=== PATIENT | male | born 2000 | race American Indian/Alaskan Native ===

== ENCOUNTER 2021-03-15 21:56 | Emergency (ER) | payer SELFPAY ==
[2021-03-15 22:08] VITALS: BP 148/106
[2021-03-15] MEDS ORDERED: AZITHROMYCIN 250 MG TAB PO ONE (22:15)
[2021-03-15] MEDS ORDERED: TETANUS,DIPH,PERTUSS(ACELL) VACCINE 0.5 ML SYRINGE IM ONE (22:15)
--- NOTE | 2021-03-15 22:20 | Emergency Department Report ---
ED Animal Bite HPI - General Chief Complaint: Animal Bite Stated Complaint: CAT BITE Time Seen by Provider: 03/15/21 22:15 Source: patient Mode of arrival: Ambulatory Limitations: No Limitations - History of Present Illness Initial Comments: Patient 21-year-old male who presents status post cat scratch and bite tonight. Patient states he was given a new cat from neighbor however the cat bit and scratched him on his hand when attempted to pick him up. Multiple small abrasions to right thumb and hand and scratches. No active bleeding noted at this time. Last tetanus shot is unknown. There is no fever chills pain is moderate at 3/10 at this time. Patient denies other injury. - Related Data Previous Rx's Medication Instructions Recorded Last Taken Type Azithromycin 500 mg PO DAILY #5 tablet 03/15/21 Unknown Rx Allergies Allergy/AdvReac Type Severity Reaction Status Date / Time methylphenidate Allergy Anaphylaxis Verified 03/15/21 22:09 [From Ritalin] ED Review of Systems ROS: Stated complaint: CAT BITE Other details as noted in HPI Constitutional: denies: chills, fever Eyes: denies: eye pain, eye discharge, vision change ENT: denies: ear pain, throat pain Respiratory: denies: cough, shortness of breath, wheezing Cardiovascular: denies: chest pain, palpitations Endocrine: no symptoms reported Gastrointestinal: denies: abdominal pain, nausea, diarrhea Genitourinary: denies: urgency, dysuria Musculoskeletal: denies: back pain, joint swelling, arthralgia Skin: other (Right hand and thumb with multiple abrasions) Neurological: vertigo. denies: headache, weakness, paresthesias Psychiatric: denies: anxiety, depression Hematological/Lymphatic: denies: easy bleeding, easy bruising ED Past Medical Hx - Past Medical History Previous Medical History?: No - Surgical History Past Surgical History?: No - Social History Smoking Status: Unknown if ever smoked Substance Use Type: None - Medications Home Medications: Home Medications Medication Instructions Recorded Confirmed Last Taken Type Azithromycin 500 mg PO DAILY #5 tablet 03/15/21 Unknown Rx ED Physical Exam - General Limitations: No Limitations General appearance: alert, in no apparent distress - Head Head exam: Present: atraumatic, normocephalic - Eye Eye exam: Present: normal appearance, EOMI Pupils: Present: normal accommodation - ENT ENT exam: Present: mucous membranes moist - Neck Neck exam: Present: normal inspection, tenderness, full ROM - Respiratory Respiratory exam: Present: normal lung sounds bilaterally. Absent: respiratory distress, wheezes - Cardiovascular Cardiovascular Exam: Present: regular rate, normal rhythm, normal heart sounds. Absent: systolic murmur, diastolic murmur, rubs, gallop - GI/Abdominal GI/Abdominal exam: Present: soft, normal bowel sounds. Absent: distended, tenderness, bruit, hernia - Rectal Rectal exam: Present: deferred - Extremities Exam Extremities exam: Present: normal inspection, full ROM, normal capillary refill - Back Exam Back exam: Present: normal inspection, full ROM. Absent: tenderness - Neurological Exam Neurological exam: Present: alert, oriented X3, CN II-XII intact, normal gait - Psychiatric Psychiatric exam: Present: normal affect, normal mood - Skin Skin exam: Present: abrasion (right thumb and hand mulitple small abrasion) ED Course Vital Signs 03/15/21 21:56 Temperature 98.0 F Pulse Rate 89 Blood Pressure 148/106 Critical care attestation.: If time is entered above; I have spent that time in minutes in the direct care of this critically ill patient, excluding procedure time. ED Disposition Clinical Impression: Cat scratch Disposition: HOME / SELF CARE / HOMELESS Is pt being admited?: No Does the pt Need Aspirin: No Condition: Stable Instructions: Abrasion, [id number], Animal Bite, Adult, [id number] Additional Instructions: take medications as prescribed, wash with soap and water daily, follow up with primary care doctor in 2-3 days , return to [facility] if symptoms of infection develope as discussed and agreed Prescriptions: Azithromycin 500 mg PO DAILY #5 tablet Referrals: EDGAR BRAN MD [Staff Physician] - 3-5 Days Forms: Work/School Release Form(ED) Time of Disposition: 22:22
== END 2021-03-15 23:06 | disposition home or self-care (01) ==
LOC: ED 21:56
DX: S60.311A Abrasion of right thumb, initial encounter (principal); Z88.8 Allergy status to other drugs, medicaments and biological substances; Z79.899 Other long term (current) drug therapy; W55.03XA Scratched by cat, initial encounter; Y93.89 Activity, other specified; Y92.89 Other specified places as the place of occurrence of the external cause; Y99.8 Other external cause status
CPT/HCPCS: 90471; 90715; 99282